=== PATIENT | male | born 1975 | race Caucasian/White ===

== ENCOUNTER 2016-12-16 14:07 | Emergency (ER) | payer SELFPAY ==
--- NOTE | 2016-12-16 14:34 | ER PHYSICIAN DOCUMENTATION ---
Physician Documentation [facility] Name:Archie Langston Age:41 yrs Sex:Male :1975 Arrival Date:12/16/2016 Time:14:03 Bed1 Private MD: Nilton Wilson Disposition: 12/17 11:24 Chart complete. tl1 Disposition: 12/16/16 14:08 Discharged to Home/Self Care. Impression: Foreign Body in Upper Limb. - Condition is Good. - Discharge Instructions: FOREIGN BODY, Soft Tissue [Removed]. - Medical Reconciliation form form. - Follow up: Private Physician; When: As needed; Reason: Recheck today's complaints. - Problem is new. - Symptoms have improved. HPI: 12/16 14:06 This 41 yrs old presents to ER with complaints of Foreign Body In Forearm - Fish hook. tl1 14:06 The patient or guardian complains of injury. The complaints affect the dorsal aspect of tl1 left forearm. Context: resulted from fishhook. Onset: The symptom(s)/episode began/occurred suddenly, just prior to arrival. Historical: - Allergies: No known drug Allergies; - Home Meds: 1. None - PMHx: None; - PSHx: None; - Tetanus: < 10 years. - Immunization history: Pneumococcal vaccine status is unknown. - Ebola Screening: : Patient negative for fever greater than or equal to 101.5 degrees Fahrenheit, and additional compatible Ebola Virus Disease symptoms. Patient denies exposure to infectious person. Patient denies travel to an Ebola-affected area in the 21 days before illness onset. No symptoms or risks identified at this time. . - Social history: Smoking status: Patient states was never smoker of tobacco. ROS: 14:07 MS/extremity: Positive for puncture. tl1 Exam: 14:05 Constitutional: This is a well developed, well nourished patient who is awake, alert, tl1 and in no acute distress. 14:05 Head/Face: Normocephalic, atraumatic. tl1 14:05 Cardiovascular: Rate: normal. tl1 14:05 Respiratory: Respirations: normal. 14:05 Musculoskeletal/extremity: Extremities: grossly normal except: noted in the palmar aspect of right forearm: puncture, with 2 hooks of a treble hook embedded in the skin.. Vital Signs: 14:21 BP 119 / 83; Pulse 84; Resp 16; Weight 74.84 kg (R); Height 5 ft. 2 in. 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 MDM: 14:05 Patient medically screened. tl1 14:05 Data reviewed: vital signs, nurses notes, and as a result, I will discharge patient. tl1 Counseling: I had a detailed discussion with the patient and/or guardian regarding: the historical points, exam findings, and any diagnostic results supporting the discharge/admit diagnosis, to return to the emergency department if symptoms worsen or persist or if there are any questions or concerns that arise at home. Response to treatment: the patient's symptoms have resolved after treatment. Dispensed Medications: No medications were administered Signatures: Juan Miguel Bagley RN RN tg Nilton Cain MD MD tl1
--- NOTE | 2016-12-16 14:34 | ER NURSING DOCUMENTATION ---
Nurse's Notes [facility] Name:Archie Langston Age:41 yrs Sex:Male :1975 Arrival Date:12/16/2016 Time:14:03 Bed1 Private MD: Diagnosis:Foreign Body in Upper Limb Presentation: 12/16 14:18 Presenting complaint: Patient states: Fish hook caught in right forearm. Transition of tg care: patient was not received from another setting of care. 14:18 Method Of Arrival: Private Vehicle tg 14:18 Acuity: HAILEE 4 tg Triage Assessment: 14:19 General: Appears in no apparent distress, Behavior is cooperative. Pain: Complains of tg pain in dorsal aspect of right forearm. Historical: - Allergies: No known drug Allergies; - Home Meds: 1. None - PMHx: None; - PSHx: None; - Tetanus: < 10 years. - Immunization history: Pneumococcal vaccine status is unknown. - Ebola Screening: : Patient negative for fever greater than or equal to 101.5 degrees Fahrenheit, and additional compatible Ebola Virus Disease symptoms. Patient denies exposure to infectious person. Patient denies travel to an Ebola-affected area in the 21 days before illness onset. No symptoms or risks identified at this time. . - Social history: Smoking status: Patient states was never smoker of tobacco. Screenin:20 Infectious Disease Risk Unable to Obtain. Abuse screen: Denies threats or abuse. Denies tg injuries from another. Nutritional screening: No deficits noted. Assessment: 14:20 See Triage Assessment done by same RN. tg Vital Signs: 14:21 BP 119 / 83; Pulse 84; Resp 16; Weight 74.84 kg (R); Height 5 ft. 2 in. (157.48 cm) tg (R); Pain 2/10; 14:21 Body Mass Index 30.18 (74.84 kg, 157.48 cm) tg ED Course: 14:03 Patient arrived in ED. em3 14:05 Nilton Cain MD is Attending Physician. tl1 14:18 Juan Miguel Bagley, PALMER is Primary Nurse. tg 14:18 Triage completed. tg 14:20 Arm band placed on. tg 14:20 Valuables Remains with patient. tg 14:21 Assist Provider Assist provider with foreign body removal of a fish hook using tg hemostats, Set up for procedure. Performed by Nilton Cain MD Dressed with Bandaide Patient tolerated well. Administered Medications: No medications were administered Outcome: 14:08 Discharge ordered by . tl1 14:20 Discharged to home ambulatory. tg 14:20 Condition: stable 14:20 Discharge Assessment: Patient awake, alert and oriented x 3. No cognitive and/or functional deficits noted. Patient verbalized understanding of disposition instructions. 14:20 Instructed on discharge instructions, follow up and referral plans. 14:33 Patient left the ED. tg Signatures: Juan Miguel Bagley RN RN Luis A Clark 3 Nilton Cain MD MD tl1
== END 2016-12-16 14:34 | disposition home or self-care (01) ==
LOC: ER 14:07
DX: S51.841A Puncture wound with foreign body of right forearm, initial encounter (principal); W45.8XXA Other foreign body or object entering through skin, initial encounter
CPT/HCPCS: 99282